=== PATIENT | female | born 1945 | race Caucasian/White ===

== ENCOUNTER 2023-12-06 18:13 | Inpatient (IN) | payer MEDICARE, OTHER ==
[~2023-12-06] VITALS: Ht 165.1 cm; Wt 85.4 kg
[2023-12-06 18:37] LABS: EOSINOPHILS % (AUTO) 8.1 % (0.0-7.0); HEMATOCRIT 42.3 % (31.2-41.9); HEMOGLOBIN 13.7 g/dL (10.9-14.3); LYMPHOCYTES % (AUTO) 41.2 % (20.5-51.5); MEAN CORPUSCULAR HEMOGLOBIN 28.8 uug (24.7-32.8); MEAN CORPUSCULAR HGB CONC 32 g/dL (32.3-35.6); MONOCYTES # (AUTO) 12.1 K/uL (0.1-1.30); MONOCYTES % (AUTO) 49.9 % (0.0-11.0); NEUTROPHILS # (AUTO) 0.2 K/uL (1.8-8.9); NEUTROPHILS % (AUTO) 0.8 % (38.5-71.5); PLATELET COUNT (AUTO) 323 K/uL (179-408); RED BLOOD CELL COUNT(AUTO) 4.75 MIL/uL (3.63-4.92); RED CELL DISTRIBUTION WIDTH 14.6 % (12.3-17.7); WHITE BLOOD COUNT (AUTO) 24.3 K/uL (3.8-11.8)
[2023-12-06 18:40] LABS: *BILIRUBIN,URIN NEGATIVE (NEGATIVE); *BLOOD, URINE NEGATIVE (NEGATIVE); *CLARITY,URINE CLEAR (CLEAR); *COLOR,URINE YELLOW (YELLOW); *KETONES,URINE 1+ (NEGATIVE); *PROTEIN,URINE NEGATIVE (NEGATIVE); *UROBILINOGEN,URINE 0.2 E.U./dl (NORMAL); LEUKOCYTE ESTERASE ,URINE NEGATIVE (NEGATIVE); NITRITE, URINE NEGATIVE (NEGATIVE); UGLUCOSE NEGATIVE (NEGATIVE)
[2023-12-06] MEDS ORDERED: QUET25TA3 PO (18:41)
[2023-12-06] MEDS ORDERED: GABAPENTIN PO (18:41)
[2023-12-06 18:47] LABS: DIFFERENTIAL COMMENT 1
[2023-12-06 18:53] LABS: CALCIUM 9.3 mg/dL (8.5-10.1); CARBON DIOXIDE 24 mmol/L (21-32); CHLORIDE 103 mmol/L (98-107); CREATININE 0.7 mg/dL (0.6-1.3); GLUCOSE 162 mg/dL (74-106); POTASSIUM 3.5 mmol/L (3.5-5.1); SODIUM SERUM 138 mmol/L (136-145); UREA NITROGEN, BLOOD 13 mg/dL (7-18)
[2023-12-06 18:55] LABS: *AMPHETAMINE, URINE NEGATIVE (NEGATIVE); *BARBITURATE, URINE NEGATIVE (NEGATIVE); *BENZODIAZEPINE, URINE NEGATIVE (NEGATIVE); *CANNABINOID, URINE NEGATIVE (NEGATIVE); *COCCAINE, URINE NEGATIVE (NEGATIVE); *OPIATE, URINE NEGATIVE (NEGATIVE); *PHENCYCLIDINE SCREEN,URINE NEGATIVE (NEGATIVE); FENTANYL, URINE NEGATIVE (NEGATIVE)
[2023-12-06 19:00] LABS: AMMONIA < 10 umol/L (11-32)
[2023-12-06 19:01] LABS: ALANINE AMINOTRANSFERASE 75 U/L (14-59); ALBUMIN 3.2 g/dL (3.4-5.0); ALKALINE PHOSPHATASE 96 U/L (50-136); ASPARTATE AMINOTRANSFERASE 98 U/L (15-37); BILIRUBIN,DIRECT 0.3 mg/dL (0.0-0.2); BILIRUBIN,TOTAL 1.4 mg/dL (0.2-1.0); TOTAL PROTEIN, SERUM 7.2 g/dL (6.4-8.2)
[2023-12-06 19:04] LABS: THYROID STIMULATING HORMONE 2.595 mIU/mL (0.358-3.740)
[2023-12-06] MEDS ORDERED: ASPIRIN 325 MG TABLET ONE (19:18)
[2023-12-06] MEDS ORDERED: PIPERACILLIN/TAZOBACTAM/D5W 50 ML IV ONE (19:18)
[2023-12-06] MEDS: PIPERACILLIN SODIUM/TAZOBACTAM 3.375 G in IV DEXTROSE 5% 50 ML IV ONE (19:20)
[2023-12-06] MEDS: IV NS 1000 ML 1,000 ML IV ONE (19:20)
[2023-12-06] MEDS ORDERED: HEPARIN/D5W DRIP 500 ML ONE (19:39)
[2023-12-06] MEDS ORDERED: HEPARIN/D5W DRIP 500 ML IV PRN (19:45)
[2023-12-06] MEDS ORDERED: HEPARIN SODIUM,PORCINE 5,000 UNITS/ML VIAL ONE (19:48)
[2023-12-06] MEDS ORDERED: HEPARIN SODIUM,PORCINE/PF 500 UNIT/5 ML SYR ONE (19:49)
[2023-12-06] MEDS: ASPIRIN 325 MG TABLET PO ONE (19:54)
[2023-12-06 21:14] LABS: BAND % (MANUAL) 4 % (0-10); EOSINOPHILS % (MANUAL) 1 % (0-8); LYMPHOCYTES % (MANUAL) 10 % (20-40); MONOCYTES % (MANUAL) 1 % (2-10); NEUTROPHILS % (MANUAL) 84 % (42-75)
[2023-12-06 21:15] LABS: PLATELET ESTIMATE ADEQUATE
[2023-12-06] MEDS: HEPARIN SODIUM,PORCINE 5,000 UNITS/ML VIAL IV ONE (21:59)
[2023-12-06] MEDS: HEPARIN/D5W DRIP 500 ML IV PRN (22:00)
[2023-12-06] MEDS ORDERED: MAGNESIUM HYDROXIDE 30 ML LIQUID UDC PO PRN (22:30)
[2023-12-06] MEDS ORDERED: ACETAMINOPHEN 325 MG TABLET PO PRN (22:30)
[2023-12-06] MEDS ORDERED: ONDANSETRON 4 MG/2 ML VIAL IV PRN (22:30)
[2023-12-06] MEDS ORDERED: MEMA5TAB42 PO (23:11)
[2023-12-06] MEDS ORDERED: ESCI20TA PO (23:11)
[2023-12-06] MEDS ORDERED: AMLO-212 PO (23:11)
[2023-12-06] MEDS ORDERED: NITROGLYCERIN 0.4 MG/TAB BOTTLE SL PRN (23:15)
[2023-12-07 00:53] VITALS: BP 136/72; TEMP 98.2; O2SAT 99
[2023-12-07] MEDS ORDERED: VANCOMYCIN IV 200 ML ONE (01:08)
[2023-12-07] MEDS: VANCOMYCIN IV 1,000 MG in IV DEXTROSE 5% 250 ML IV ONE (01:15)
[2023-12-07] MEDS: MORPHINE SULFATE 2 MG/1 ML DISP.SYRIN IV PRN (02:47)
[2023-12-07 04:11] LABS: BASOPHILS % (AUTO) 0.2 % (0.0-2.0); HEMATOCRIT 36.8 % (31.2-41.9); HEMOGLOBIN 12.2 g/dL (10.9-14.3); LYMPHOCYTES # (AUTO) 2.2 K/uL (0.8-4.8); LYMPHOCYTES % (AUTO) 11.5 % (20.5-51.5); MEAN CORPUSCULAR HEMOGLOBIN 29.7 uug (24.7-32.8); MEAN CORPUSCULAR HGB CONC 33 g/dL (32.3-35.6); MEAN CORPUSCULAR VOLUME 89.5 fL (75.5-95.3); MONOCYTES % (AUTO) 10.6 % (0.0-11.0); NEUTROPHILS # (AUTO) 14.8 K/uL (1.8-8.9); NEUTROPHILS % (AUTO) 77.7 % (38.5-71.5); PLATELET COUNT (AUTO) 239 K/uL (179-408); RED BLOOD CELL COUNT(AUTO) 4.11 MIL/uL (3.63-4.92); RED CELL DISTRIBUTION WIDTH 14.7 % (12.3-17.7); WHITE BLOOD COUNT (AUTO) 19.1 K/uL (3.8-11.8)
[2023-12-07 04:20] LABS: DIFFERENTIAL COMMENT 1
[2023-12-07 04:28] LABS: CALCIUM 8.3 mg/dL (8.5-10.1); CARBON DIOXIDE 25 mmol/L (21-32); CHLORIDE 104 mmol/L (98-107); CHOLESTEROL 142 mg/dL (<200); CREATININE 0.6 mg/dL (0.6-1.3); GLUCOSE 160 mg/dL (74-106); HDL CHOLESTEROL 70 mg/dL (40-60); MAGNESIUM 2.1 mg/dL (1.8-2.4); POTASSIUM 3.1 mmol/L (3.5-5.1); SODIUM SERUM 138 mmol/L (136-145); TRIGLYCERIDES 51 MG/DL (30-150); UREA NITROGEN, BLOOD 10 mg/dL (7-18)
[2023-12-07 04:36] LABS: THYROID STIMULATING HORMONE 2.875 mIU/mL (0.358-3.740)
[2023-12-07 05:00] VITALS: BP 120/65; TEMP 98.2; O2SAT 99
[2023-12-07] MEDS: PANTOPRAZOLE SODIUM 40 MG TABLET.DR PO SCH (06:33)
[2023-12-07 08:25] VITALS: BP 127/74; TEMP 97.6; O2SAT 92
[2023-12-07] MEDS: CLOPIDOGREL 75 MG TABLET PO ONE (08:45)
[2023-12-07] MEDS: ASPIRIN 81 MG TAB.CHEW PO SCH (08:45)
[2023-12-07] MEDS: METOPROLOL TARTRATE 25 MG TABLET PO SCH (08:46)
[2023-12-07] MEDS: REMEDY ESSENTIAL ZINC PASTE 113 GM TP PRN (08:47)
[2023-12-07] MEDS ORDERED: QUET50TA PO ×2 (09:43→09:47)
[2023-12-07] MEDS ORDERED: GABA800T11 PO (09:47)
[2023-12-07] MEDS: LORAZEPAM 2 MG/1 ML VIAL IV PRN (11:34)
[2023-12-07] MEDS: POTASSIUM PHOSPHATE MM 15 MMOL in IV NORMAL SALINE 250 ML IV ONE (12:02)
[2023-12-07] MEDS ORDERED: IOHEXOL 350 100 ML INFUS..BTL ONE (14:09)
[2023-12-07] MEDS ORDERED: SWABABLE VALVE TRANSFER SET EA MC ONE (14:09)
[2023-12-07] MEDS ORDERED: IV NORMAL SALINE 250 ML IV ONE (14:10)
[2023-12-07 15:50] VITALS: BP 127/67; TEMP 98; O2SAT 97
[2023-12-07] MEDS: ATORVASTATIN 40 MG TABLET PO SCH (20:30)
[2023-12-07] MEDS: REMEDY ESSENTIAL ZINC PASTE 113 GM TP SCH (20:34)
[2023-12-07 21:06] VITALS: BP 131/72; TEMP 98.1; O2SAT 92
[2023-12-07] MEDS ORDERED: PIPERACILLIN/TAZOBACTAM/D5W 50 ML IV ONE (21:59)
[2023-12-07] MEDS ORDERED: PIPERACILLIN/TAZOBACTAM/D5W 0 ML IV ONE (21:59)
[2023-12-07] MEDS ORDERED: PIPERACILLIN SODIUM/TAZOBACTAM 3.375 G in IV DEXTROSE 5% 50 ML IV SCH (22:00)
[2023-12-07] MEDS: PIPERACILLIN SODIUM/TAZOBACTAM 3.375 G in IV DEXTROSE 5% 50 ML IV ONE (22:23)
[2023-12-08 05:34] LABS: BASOPHILS # (AUTO) 0.1 K/UL (0.0-0.2); BASOPHILS % (AUTO) 0.5 % (0.0-2.0); EOSINOPHILS # (AUTO) 0.3 K/uL (0.0-0.7); EOSINOPHILS % (AUTO) 2.2 % (0.0-7.0); HEMATOCRIT 37.9 % (31.2-41.9); HEMOGLOBIN 12.5 g/dL (10.9-14.3); LYMPHOCYTES % (AUTO) 15.9 % (20.5-51.5); MEAN CORPUSCULAR HEMOGLOBIN 29.6 uug (24.7-32.8); MEAN CORPUSCULAR HGB CONC 33 g/dL (32.3-35.6); MEAN CORPUSCULAR VOLUME 89.3 fL (75.5-95.3); MONOCYTES # (AUTO) 1.6 K/uL (0.1-1.30); MONOCYTES % (AUTO) 12.5 % (0.0-11.0); NEUTROPHILS # (AUTO) 8.6 K/uL (1.8-8.9); NEUTROPHILS % (AUTO) 68.9 % (38.5-71.5); PLATELET COUNT (AUTO) 235 K/uL (179-408); RED BLOOD CELL COUNT(AUTO) 4.24 MIL/uL (3.63-4.92); RED CELL DISTRIBUTION WIDTH 14.6 % (12.3-17.7); WHITE BLOOD COUNT (AUTO) 12.5 K/uL (3.8-11.8)
[2023-12-08 05:46] LABS: DIFFERENTIAL COMMENT 1
[2023-12-08 05:51] LABS: ALBUMIN 2.5 g/dL (3.4-5.0); BILIRUBIN,TOTAL 0.8 mg/dL (0.2-1.0); CALCIUM 8.3 mg/dL (8.5-10.1); CREATININE 0.6 mg/dL (0.6-1.3); MAGNESIUM 2.2 mg/dL (1.8-2.4); PHOSPHOROUS 2.4 mg/dL (2.5-4.9); POTASSIUM 3.4 mmol/L (3.5-5.1); TOTAL PROTEIN, SERUM 6.2 g/dL (6.4-8.2)
[2023-12-08 06:17] LABS: NT-PRO BNP 5983 pg/mL (0-125)
[2023-12-08 06:19] VITALS: BP 101/83; TEMP 97.8; O2SAT 93
[2023-12-08] MEDS ORDERED: PIPERACILLIN SODIUM/TAZO 3.375 GM VIAL ONE (06:25)
[2023-12-08] MEDS: PIPERACILLIN SODIUM/TAZOBACTAM 3.375 G in IV DEXTROSE 5% 100 ML IV SCH (06:36)
[2023-12-08 07:41] VITALS: BP 145/80; TEMP 98.7; O2SAT 94
[2023-12-08] MEDS: POTASSIUM CHLORIDE 50 ML IV SCH (08:44)
[2023-12-08] MEDS: CLOPIDOGREL 75 MG TABLET PO SCH (08:45)
[2023-12-08 11:57] VITALS: BP 135/70; TEMP 98.9; O2SAT 94
[2023-12-08 16:00] VITALS: BP 146/92; TEMP 98.7; O2SAT 96
[2023-12-08] MEDS: NEUTRA PHOS PACKET PO ONE (16:37)
[2023-12-08 20:00] VITALS: TEMP 98.6
[2023-12-09] VITALS: TEMP 98.4
[2023-12-09 04:00] VITALS: TEMP 99.2
[2023-12-09 06:56] VITALS: TEMP 99.1
[2023-12-09 07:31] LABS: CALCIUM 8.8 mg/dL (8.5-10.1); CREATININE 0.6 mg/dL (0.6-1.3); PHOSPHOROUS 2.2 mg/dL (2.5-4.9); POTASSIUM 3.4 mmol/L (3.5-5.1)
[2023-12-09 07:55] VITALS: BP 147/80; TEMP 98.4; O2SAT 96
[2023-12-09 08:02] LABS: BASOPHILS # (AUTO) 0.1 K/UL (0.0-0.2); BASOPHILS % (AUTO) 0.5 % (0.0-2.0); EOSINOPHILS # (AUTO) 0.2 K/uL (0.0-0.7); EOSINOPHILS % (AUTO) 1.6 % (0.0-7.0); HEMATOCRIT 39.1 % (31.2-41.9); HEMOGLOBIN 12.6 g/dL (10.9-14.3); LYMPHOCYTES # (AUTO) 1.5 K/uL (0.8-4.8); LYMPHOCYTES % (AUTO) 13.2 % (20.5-51.5); MEAN CORPUSCULAR HEMOGLOBIN 28.8 uug (24.7-32.8); MEAN CORPUSCULAR HGB CONC 32 g/dL (32.3-35.6); MEAN CORPUSCULAR VOLUME 89.4 fL (75.5-95.3); MONOCYTES # (AUTO) 1.6 K/uL (0.1-1.30); MONOCYTES % (AUTO) 13.9 % (0.0-11.0); NEUTROPHILS # (AUTO) 7.9 K/uL (1.8-8.9); NEUTROPHILS % (AUTO) 70.8 % (38.5-71.5); PLATELET COUNT (AUTO) 264 K/uL (179-408); RED BLOOD CELL COUNT(AUTO) 4.37 MIL/uL (3.63-4.92); RED CELL DISTRIBUTION WIDTH 13.9 % (12.3-17.7); WHITE BLOOD COUNT (AUTO) 11.2 K/uL (3.8-11.8)
[2023-12-09 08:14] LABS: DIFFERENTIAL COMMENT 1
[2023-12-09] MEDS: POTASSIUM CHLORIDE 50 ML IV SCH (08:45)
[2023-12-09] MEDS ORDERED: CLOP75TA33 PO (09:08)
[2023-12-09] MEDS ORDERED: LORA0.5T48 PO (09:08)
[2023-12-09] MEDS ORDERED: METO25TA6 PO (09:08)
[2023-12-09] MEDS ORDERED: ASPI81TA31 PO (09:08)
[2023-12-09] MEDS ORDERED: ATOR40TA PO (09:14)
[2023-12-09] MEDS ORDERED: POTASSIUM CHLORIDE 20 MEQ TAB.PRT.SR PO ONE (09:15)
[2023-12-09] MEDS: NEUTRA PHOS PACKET PO ONE (10:01)
[2023-12-09 11:13] VITALS: BP 150/83; TEMP 98.4; O2SAT 95
== END 2023-12-09 12:20 | disposition home health service (06) | DRG 280 ==
LOC: ER 18:16 → TELE3 23:02
PROVIDERS: ADMIT Nurse Practitioner Acute Care; ATTEND Internal Medicine
DX: I21.A1 Myocardial infarction type 2 (principal); E43 Unspecified severe protein-calorie malnutrition; R65.11 Systemic inflammatory response syndrome (SIRS) of non-infectious origin with acute organ dysfunction; G93.41 Metabolic encephalopathy; G92.8 Other toxic encephalopathy; F02.83 Dementia in other diseases classified elsewhere, unspecified severity, with mood disturbance; F02.84 Dementia in other diseases classified elsewhere, unspecified severity, with anxiety; R17 Unspecified jaundice; D68.59 Other primary thrombophilia; D72.829 Elevated white blood cell count, unspecified; G30.9 Alzheimer's disease, unspecified; F02.80 Dementia in other diseases classified elsewhere, unspecified severity, without behavioral disturbance, psychotic disturbance, mood disturbance, and anxiety; Z74.09 Other reduced mobility; E88.09 Other disorders of plasma-protein metabolism, not elsewhere classified; E87.6 Hypokalemia; Z87.828 Personal history of other (healed) physical injury and trauma
CPT/HCPCS: 36415; 70030-TC; 70450; 71045; 71275; 83605; 83690; 83735; 84100; 84443; 84484; 85025; 85730; 87040; 93005; 93307; A4606; A4663; G0378; J1642; J1644; J2060; J2270; J2543; J3370; J3480; J3490; J7040; Q9967